=== PATIENT | female | born 1935 | race Caucasian/White ===

== ENCOUNTER 2017-11-29 10:01 | Emergency (ER) | payer OTHER ==
[~2017-11-29] VITALS: Ht 154.9 cm; Wt 58.5 kg
[~2017-11-29 10:01] MED LIST: ASPIRIN325 MG PO; CENTRUM SILVER1 EAC4 PO; CRESTOR20 MG PO; FISH OIL 1,2001 EAC4 PO; GARLIC200 MG PO; HYDROCODON-ACE1 EAC7 PO; METOPROLOL SUCC50 MG PO; NEXIUM40 MG PO
[2017-11-29 10:38] LABS: BASOPHIL (%) 0.5 % (0-1); EOSINOPHIL (%) 3.6 % (0-5); EOSINOPHIL COUNT 0.2 K/uL (0-0.3); HEMATOCRIT 39.7 % (36.0-46.0); HEMOGLOBIN 12.9 G/DL (11.9-15.5); IMMATURE GRANULOCYTE (%) 0.2 % (0.0-0.7); LYMPHOCYTE (%) 30.9 % (15-42); LYMPHOCYTE COUNT 1.9 K/uL (1.0-2.8); MCH 27.3 PG (29.0-34.0); MCHC 32.5 G/DL (30.0-36.0); MCV 83.9 FL (83-99); MONOCYTE COUNT 0.4 K/uL (0-0.8); NEUTROPHIL (%) 57.8 % (45-76); NEUTROPHIL COUNT 3.6 K/uL (1.8-6.4); PLATELET COUNT 172 K/uL (156-360); RBC DIS.WIDTH-CV 13.3 % (11.8-14.6); RBC DIS.WIDTH-SD 40.8 % (39-53); RED BLOOD COUNT 4.73 M/uL (3.80-5.20); WHITE BLOOD COUNT 6.2 K/uL (4.1-10.2)
[2017-11-29 10:53] LABS: ALBUMIN 4.3 g/dL (3.2-4.8); CHLORIDE 106 mEq/L (99-109); POTASSIUM 3.9 mEq/L (3.7-5.4); SODIUM 142 mEq/L (136-147)
[2017-11-29 10:55] LABS: GLUCOSE 122 mg/dL (70-99); TOTAL PROTEIN 6.9 g/dL (6.4-8.3)
[2017-11-29 10:57] LABS: TOTAL BILIRUBIN 0.5 mg/dL (0.0-1.0)
[2017-11-29 10:58] LABS: ALKALINE PHOSPHATASE 80 IU/L (3-129)
[2017-11-29 10:59] LABS: CREATININE 0.8 mg/dL (0.6-1.3); GFR ESTIMATE (CALCULATED) > 59 mL/min/
[2017-11-29 11:00] LABS: AST (GOT) 18 IU/L (2-34); DIRECT BILIRUBIN 0.2 mg/dL (0.0-0.3); UREA NITROGEN (BUN) 11 mg/dL (9-23)
[2017-11-29 11:02] LABS: ALT (GPT) 12 IU/L (3-49); LIPASE 11 U/L (1.0-51.0)
[2017-11-29 13:02] LABS: APPEARANCE CLEAR ((CLEAR)); BILIRUBIN NEGATIVE; BLOOD SMALL; COLOR STRAW ((YELLOW)); GLUCOSE (STRIP) NEGATIVE; KETONES NEGATIVE; LEUKOCYTES NEGATIVE; NITRITE NEGATIVE; PROTEIN (STRIP) NEGATIVE; SPECIFIC GRAVITY 1.004 (1.000-1.030); UROBILINOGEN 0.2 MG/DL (0.2-1.0)
[2017-11-29 13:08] LABS: BACTERIA RARE /HPF; EPITHELIAL CELLS RARE /HPF; MUCUS TRACE /LPF; RED BLOOD CELLS 0-5 /HPF (0-5); UCUL ADDED? NO; WHITE BLOOD CELLS 0-5 /HPF (0-5)
[2017-11-29 13:52] VITALS: BP 137/82
== END 2017-11-29 13:57 | disposition home or self-care (01) ==
LOC: EME 10:01
PROVIDERS: Emergency Medicine
DX: R10.30 Lower abdominal pain, unspecified (principal); E78.5 Hyperlipidemia, unspecified; Z85.828 Personal history of other malignant neoplasm of skin; I25.10 Atherosclerotic heart disease of native coronary artery without angina pectoris; Z95.5 Presence of coronary angioplasty implant and graft; Z79.82 Long term (current) use of aspirin; Z88.5 Allergy status to narcotic agent; Z88.1 Allergy status to other antibiotic agents
CPT/HCPCS: 74018; 80048; 80076; 81003; 83605; 83690; 85025; 99281; 99284